=== PATIENT | female | born 1995 | race American Indian/Alaskan Native ===

== ENCOUNTER 2019-01-22 00:34 | Emergency (ER) | payer SELFPAY ==
[2019-01-22 02:15] LABS: Bilirubin,Urine NEG (Negative); Blood,Urine NEG (Negative); Color,Urine Yellow (Yellow); Mucus,Urine 3+ /HPF; Protein,Urine <15 mg/dL mg/dL (Negative); Urobilinogen,Urine < 2.0 mg/dL (<2.0)
[2019-01-22 02:31] LABS: HCG Qualitative,Urine Positive (Negative)
[2019-01-22] MEDS ORDERED: ZOFRAN ODT PO ONE (04:18)
--- NOTE | 2019-01-22 04:23 | Emergency Department Report ---
Vomiting/Diarrhea - HPI Chief Complaint: Nausea/Vomiting/Diarrhea Stated Complaint: CAN'T KEEP ANYTHING DOWN Duration: 2 months Severity: mild Nausea/Vomiting Severity: Mild Diarrhea Severity: None Pain Severity: None Symptoms: Yes Able to Tolerate Fluids, No Watery Diarrhea, No Bloody diarrhea, No Fever, No Recent Unusual Foods, No Recent Untreated Water, No Recent use of Antibiotics, No Family w/ Similar Symptoms, No Contacts w/ Similar Symptoms, No Rash, No Hematuria, No Recent URI Symptoms Other History: This is a 23-year-old after Turk[place] female who presents to the emergency room with nausea and vomiting for 2 months. Last menstrual period was 11/08/2018, A0. Patient states she was seen at [facility] in the beginning of December with similar symptoms until test was negative. She denies abdominal pain, back pain, dizziness, vaginal bleeding, vaginal discharge, urinary frequency, urgency, dysuria, or hematuria. ED Review of Systems ROS: Stated complaint: CAN'T KEEP ANYTHING DOWN Other details as noted in HPI Constitutional: denies: chills, fever Respiratory: denies: cough, shortness of breath, wheezing Cardiovascular: denies: chest pain, palpitations Gastrointestinal: nausea, vomiting. denies: abdominal pain, diarrhea Genitourinary: denies: urgency, dysuria, discharge Musculoskeletal: denies: back pain, joint swelling, arthralgia Skin: denies: rash, lesions Neurological: denies: headache, weakness, paresthesias Psychiatric: denies: anxiety, depression ED Past Medical Hx - Past Medical History Previous Medical History?: No - Surgical History Past Surgical History?: Yes Additional Surgical History: x1 - Social History Smoking Status: Never Smoker Substance Use Type: None - Medications Home Medications: Home Medications Medication Instructions Recorded Confirmed Last Taken Type Ondansetron [Zofran Odt] 4 mg PO Q8HR PRN #20 tab.rapdis 01/22/19 Unknown Rx 21/Iron Fu/Folic Acid 1 each PO DAILY #30 tablet 01/22/19 Unknown Rx [ Complete Caplet] Vomiting Diarrhea Exam - Exam General: Vital signs noted. No distress. Alert and acting appropriately. HEENT: Yes Moist Mucous Membranes, No Pharyngeal Erythema, No Pharyngeal Exudates, No Rhinorrhea, No Conjuctival Injection, No Frontal Tenderness, No Maxillary Tenderness Neck: No Adenopathy, No Rigidity Lungs: Yes Clear Lung Sounds, Yes Good Air Exchange, No Wheezes, No Stridor, No Cough, No Nasal Flaring, No Retractions, No Use of Accessory Muscles Heart exam: Regular: Yes, Murmur: No, Tachycardia: No Abdomen: Tenderness: No, Peritoneal Signs: No, Distention: No, Hyperactive Bowel sounds: No Skin exam: Rash: No, Edema: No, Normal turgor: Yes Neurologic: Alert and oriented, no deficits. Musculoskeletal: Unremarkable. ED Course Vital Signs 01/22/19 01:06 Temperature 99 F Pulse Rate 84 Respiratory 18 Rate Blood Pressure 113/72 O2 Sat by Pulse 100 Oximetry ED Medical Decision Making - Lab Data Lab Results 01/22/19 Range/Units 01:26 Urine Color Yellow (Yellow) Urine Turbidity Slightly-cloudy (Clear) Urine pH 6.0 (5.0-7.0) Ur Specific [place] 1.025 (1.003-1.030) Urine Protein <15 mg/dl (Negative) mg/dL Urine Glucose (UA) Neg (Negative) mg/dL Urine Ketones Neg (Negative) mg/dL Urine Blood Neg (Negative) Urine Nitrite Neg (Negative) Urine Bilirubin Neg (Negative) Urine Urobilinogen < 2.0 (<2.0) mg/dL Ur Leukocyte Esterase Neg (Negative) Urine WBC (Auto) 13.0 H (0.0-6.0) /HPF Urine RBC (Auto) 2.0 (0.0-6.0) /HPF U Epithel Cells (Auto) 1.0 (0-13.0) /HPF Urine Mucus 3+ /HPF Urine HCG, Qual Positive A (Negative) - Medical Decision Making Patient was examined by me. Vitals are normal and patient is in no acute distress. I obtained a urinalysis and urine test. Urine test is positive slight elevation of WBCs. I will start patient on vitamins and Zofran 4 morning the past. Start Macrobid for possible early UTI. Referral to [facility] for continued care. Patient instructed to return to the emergency room if she starts to have abdominal pain, vaginal bleeding, and/or back pain. Plan discussed with patient to discharge home and treat outpatient. He agrees with ER plan. Patient discharged home in stable condition. Critical care attestation.: If time is entered above; I have spent that time in minutes in the direct care of this critically ill patient, excluding procedure time. ED Disposition Clinical Impression: Nausea and vomiting in , confirmed by positive urine test Disposition: TO HOME OR SELFCARE Is pt being admited?: No Does the pt Need Aspirin: No Condition: Stable Instructions: Morning Sickness (ED), (ED) Additional Instructions: Take Zofran 3 times a day as needed for nausea. Follow-up with [facility] from the referral list below. Return to the emergency room if vaginal bleeding, abdominal pain, back pain, or worsening symptoms. Prescriptions: 21/Iron Fu/Folic Acid [ Complete Caplet] 1 each PO DAILY #30 tablet Ondansetron [Zofran Odt] 4 mg PO Q8HR PRN #20 tab.rapdis PRN Reason: Nausea And Vomiting Referrals: [facility] [Primary Care Provider] - 3-5 Days [facility] [Provider Group] - 3-5 Days [facility] [Provider Group] - 3-5 Days [facility] [Provider Group] - 3-5 Days Forms: Work/School Release Form(ED) Time of Disposition: 04:25
[2019-01-22 04:34] VITALS: BP 116/69
== END 2019-01-22 04:30 | disposition home or self-care (01) ==
LOC: ED 00:34
DX: O21.9 Vomiting of pregnancy, unspecified (principal); Z3A.01 Less than 8 weeks gestation of pregnancy
CPT/HCPCS: 81001; 81025; 87086; 99283; Q0162

== ENCOUNTER 2019-08-04 23:25 | Inpatient (IN) | payer MEDICAID ==
[2019-08-04] MEDS ORDERED: METHYLERGONOVINE MALEATE 0.2 MG/ML VIAL IM ONE (23:41)
--- NOTE | 2019-08-05 00:12 | History and Physical Report ---
History of Present Illness Date of examination: 08/05/19 Date of admission: 08/04/19 23:42 Chief complaint: Labor History of present illness: Patient presented to [facility] by EMS stating she needed to push, states she received care with [facility] and was suppose to deliver at [facility]. She gives a history of c/s with her first and with her second, she refused repeat c/s today. She was informed her without her previous op note I was unable to determine if TOLAC was appropriate. Risks for uterine rupture with demise and maternal emphasized, c/s risks explaned. She refused c/s. When finally allowed to examine her she was 10/100/-2. Bedside US confirmed vertex. SROM with particulate meconium. On second exam head descended to +2. 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 denies: smoking, alcohol abuse, prescription drug abuse, IV drug use - Obstetrical History Expected Date of Delivery: 08/15/19 Actual Gestation: 38 Week(s) 4 Day(s) : 3 Para: 2 Number of Living Children: 2 Medications and Allergies Allergies Allergy/AdvReac Type Severity Reaction Status Date / Time No Known Allergies Allergy Verified 01/22/19 00:39 Home Medications Medication Instructions Recorded Confirmed Last Taken Type Ondansetron [Zofran Odt] 4 mg PO Q8HR PRN #20 tab.rapdis 01/22/19 Unknown Rx 21/Iron Fu/Folic Acid 1 each PO DAILY #30 tablet 01/22/19 Unknown Rx [ Complete Caplet] Review of Systems All systems: negative Genitourinary: contractions - Vital Signs Vital signs: Vital Signs Pulse BP 89 119/64 08/04/19 23:37 08/04/19 23:37 Temp Pulse Resp BP Pulse Ox 78 119/59 100 08/05/19 00:00 08/04/19 23:59 08/05/19 00:00 - Physical Exam Breasts: Positive: deferred Lungs: Positive: Normal air movement Vulva: both: normal Uterus: Positive: enlarged Anus/Rectum: Positive: normal perianal skin Extremities: Positive: normal - Obstetrical FHR: category 1 Uterine Contraction Monitor Mode: External Cervical Dilatation: 10 Cervical Effacement Percentage: 100 station: +2 Results All other labs normal. Assessment and Plan Patient finally cooperated and started pushing. See delivery note - Patient Problems (1) 38 weeks gestation of Current Visit: Yes Status: Acute (2) Maternal care due to uterine scar from other previous surgery Current Visit: Yes Status: Acute (3) No care in current Current Visit: Yes Status: Acute
[2019-08-05] MEDS ORDERED: MINERAL OIL 30 ML ORAL LIQD PO PRN (00:22)
--- NOTE | 2019-08-05 00:29 | Procedure Note ---
OB Delivery Note - Delivery Date of Delivery: 08/05/19 Surgeon: TARYN BULLOCK Estimated blood loss: 200cc - Vaginal Delivery presentation: vertex Delivery position: OA Intrapartum events: no care Delivery induction: none Delivery monitor: external FHT, external uterine Route of delivery: Delivery placenta: spontaneous (intact) Episiotomy: none Delivery laceration: none Anesthesia: none - A at 1 minute: 8 at 5 minutes: 9 Gender: Female (8lbs 4oz)
[2019-08-05] MEDS ORDERED: OXYTOCIN 20 UNIT/1000ML DRIP 20 UNITS/1,000 ML BAG IV SCH (01:00)
[2019-08-05] MEDS ORDERED: LACTATED RINGERS 1,000 ML IV SCH (01:00)
[2019-08-05 01:06] LABS: Hematocrit 34.7 % (30.3-42.9); Hemoglobin 11.7 gm/dl (10.1-14.3); Mean Corpuscular HGB Conc 34 % (30-34); Mean Corpuscular Volume 92 fl (79-97); Platelet Count 180 K/mm3 (140-440); Red Blood Count 3.76 M/mm3 (3.65-5.03); Red Cell Distribution Width 13.9 % (13.2-15.2)
[2019-08-05 01:21] LABS: Amphetamine Screen,Urine PRESUMPTIVE NEGATIVE; Benzodiazepines Screen,Urine PRESUMPTIVE NEGATIVE; Cannabinoid Screen,Urine PRESUMPTIVE NEGATIVE; Cocaine Screen,Urine PRESUMPTIVE NEGATIVE; Methadone Screen,Urine PRESUMPTIVE NEGATIVE; Opiate Screen,Urine PRESUMPTIVE NEGATIVE
[2019-08-05 01:31] LABS: Hepatitis C Virus Antibody Non-Reactive (NonReactive)
[2019-08-05] MEDS ORDERED: MAGNESIUM HYDROXIDE (MOM) ORAL LIQD UDC PO PRN (02:28)
[2019-08-05] MEDS ORDERED: PROMETHAZINE 25 MG RECT SUPP PR PRN (02:28)
[2019-08-05] MEDS ORDERED: PROMETHAZINE 25 MG TAB PO PRN (02:28)
[2019-08-05] MEDS ORDERED: LANOLIN/ZINC/DIMETHICONE (LANSINOH) 7 GM TP PRN (02:28)
[2019-08-05] MEDS ORDERED: diphenhydrAMINE 25 MG CAP PO PRN (02:28)
[2019-08-05] MEDS ORDERED: ACETAMINOPHEN 325 MG TAB PO PRN (02:28)
[2019-08-05] MEDS ORDERED: WITCH HAZEL/ GLYCERIN PAD TP PRN (02:28)
[2019-08-05] MEDS ORDERED: ONDANSETRON 4 MG/2 ML INJ IV PRN (02:28)
[2019-08-05] MEDS: IBUPROFEN 600 MG TAB PO SCH ×3 (02:58→19:50)
--- NOTE | 2019-08-05 09:13 | Progress Note ---
Assessment and Plan A: Ms. Duncan is a 23 y.o. on 08/04/2019 at 1139pm. With no care. VSS, Fundus firm, Minimal bleeding. P: Continue with care Plan for discharge home on 08/06/2019 Subjective - Subjective Date of service: 08/05/19 (Pt doing well. Status passing flatus, ambulating, voiding normally. ) Principal diagnosis: Walk in IUP@ term, Patient reports: appetite normal, voiding normally, pain well controlled, flatus, ambulating normally : doing well Objective - Vital Signs Latest vital signs: Vital Signs Temp Pulse Resp BP BP Pulse Ox 08/05/19 08:13 98.4 F 88 16 96/48 97 08/05/19 04:00 98.6 F 74 16 101/72 08/05/19 02:10 98.8 F 80 18 103/56 98 08/05/19 01:22 83 117/67 88 08/05/19 01:21 79 99 08/05/19 01:10 84 99 08/05/19 01:05 81 97 08/05/19 01:00 79 102/67 98 08/05/19 00:55 74 99 08/05/19 00:50 78 99 08/05/19 00:45 71 111/67 99 08/05/19 00:40 74 99 08/05/19 00:35 78 100 08/05/19 00:31 83 111/65 08/05/19 00:30 78 100 08/05/19 00:25 78 99 08/05/19 00:20 77 99 08/05/19 00:16 86 107/68 08/05/19 00:15 93 H 100 08/05/19 00:10 72 100 08/05/19 00:05 79 100 08/05/19 00:00 78 100 08/04/19 23:59 83 119/59 08/04/19 23:56 58 L 61 L 08/04/19 23:54 82 100 08/04/19 23:41 68 98 08/04/19 23:37 89 119/64 08/04/19 23:25 98.2 F 89 20 119/64 89 Intake and Output 08/04/19 08/05/19 08/05/19 22:59 06:59 14:59 Intake Total 300 Output Total 1100 Balance -800 Intake: Intake, Free Water 300 Output: Urine 1100 Void 1100 Other: Total, Output Amount 800 # Voids Void 1 Weight 165 lb 5.547 oz Estimated Blood Loss 0 - Exam Breasts: Present: deferred Cardiovascular: Present: Regular rate Lungs: Present: Normal air movement Abdomen: Present: normal appearance, soft, normal bowel sounds Vulva: both: normal Uterus: Present: normal, firm, other (Minimal lochia rubra) Extremities: Present: normal Deep Tendon Reflex Grade: Normal +2 - Labs Labs: Abnormal lab results 08/04/19 Range/Units 23:30 WBC 15.0 H (4.5-11.0) K/mm3
[2019-08-05] MEDS ORDERED: FLU VACC QUAD 2019-20 (3 YR UP)/PF 60 MCG/0.5 ML SYRINGE IM ONE (12:00)
[2019-08-05 14:30] LABS: Hemoglobin 10.7 gm/dl (10.1-14.3)
[2019-08-06] MEDS ORDERED: TETANUS,DIPH,PERTUSS(ACELL) VACCINE 0.5 ML SYRINGE IM ONE (06:00)
--- NOTE | 2019-08-06 07:49 | Discharge Summary ---
Providers - Providers Date of Admission: 08/04/19 23:42 Date of discharge: 08/06/19 (Pt desires to go home.) Attending physician: TARYN BULLOCK 08/05/19 02:28 Consult to Case Management [CONS] Routine Services Needed at Discharge: Hydrant Setter Notified:: yes Phone number called:: [phone] Was contact made?: Yes Time called:: 11:58 Comment:: message sent Additional Physician Instructions: No care Consult to Rn Emergency Room [CONS] Routine Reason For Exam: assistance with , SNS Primary care physician: TARYN BULLOCK Hospitalization Reason for admission: active labor, IUP at term Delivery: Episiotomy: none Laceration: none Other procedures: none complications: none Discharge diagnosis: IUP at term delivered [place] baby: female Hospital course: S: States that she will follow up with her OBSTETRICS SPECIALIST at [facility] upon discharge. States passing flatus, voiding okay, and ambulating. O: VSS, fundus firm, minimal lochia rubra. H/H 10.7/32.0. A: 23 y.o. with no care , stable P: D/C home with instructions To follow up with primary care OB upon discharge home. Condition at discharge: Good Disposition: DC-01 TO HOME OR SELFCARE Plan - Provider Discharge Summary Activity: routine, no sex for 6 weeks, no heavy lifting 4 weeks, no strenuous exercise Diet: routine Instructions: routine Additional instructions: [] Smoking cessation referral if applicable(refer to patient education folder for contact #) [] Refer to [facility]'s [facility] Booklet Call your doctor immediately for: * Fever > 100.5 * Heavy vaginal bleeding ( >1 pad per hour) * Severe persistent headache * Shortness of breath * Reddened, hot, painful area to leg or breast * Drainage or odor from incision. * Keep incision clean and dry at all times and follow doctor's instructions regarding bathing/showering - Follow up plan Follow up: TARYN BULLOCK MD [Primary Care Provider] - 09/06/19 (Congratulations!! Please follow up with your primary care OB in 4 weeks . You may take over the counter Motrin and Tylenol for pain. [address] [facility] [address] [place] [id number] )
[2019-08-06 16:58] VITALS: BP 113/73
[2019-08-07] MEDS ORDERED: METHYLERGONOVINE 0.2 MG TABLET PO SCH (03:00)
== END 2019-08-06 18:40 | disposition home or self-care (01) | DRG 775 ==
LOC: TRG 23:25 → LD 23:26 → TRG 23:38 → LD 23:42 → OB 08-05 02:26
PROVIDERS: ADMIT Obstetrics & Gynecology; ATTEND Obstetrics & Gynecology
PROC: 10E0XZZ Delivery of Products of Conception, External Approach (ICD-10-PCS; principal; 2019-08-05)
PROC: 3E0234Z Introduction of Serum, Toxoid and Vaccine into Muscle, Percutaneous Approach (ICD-10-PCS; 2019-08-06)
DX: O34.211 Maternal care for low transverse scar from previous cesarean delivery (principal); Z3A.38 38 weeks gestation of pregnancy; Z37.0 Single live birth; Z23 Encounter for immunization
CPT/HCPCS: 36415; 80307; 85014; 85018; 85027; 86592; 86706; 86762; 86803; 86850; 86900; 86901; 87806; 90686; G0378; J2210; J2590; J7120